=== PATIENT | female | born 1975 ===

== ENCOUNTER 2025-01-13 10:13 | Emergency (ER) | payer SELFPAY | END 2025-01-13 11:30 | disposition home or self-care (01) | LOC: LL.ED 10:13 | DX: M79.671 Pain in right foot (principal); I10 Essential (primary) hypertension; E66.9 Obesity, unspecified; Z88.8 Allergy status to other drugs, medicaments and biological substances; Z68.35 Body mass index [BMI] 35.0-35.9, adult | CPT/HCPCS: 73630-RT; 99283 ==